=== PATIENT | female | born 1955 | race Caucasian/White ===

== ENCOUNTER 2016-10-11 09:40 | Emergency (ER) | payer BC ==
[2016-10-11 10:02] VITALS: BP 126/64
--- NOTE | 2016-10-11 10:14 | UC ---
Skin Complaint HPI - HPI Summary HPI Summary: 2 days of rash on lower leg---does not hurt or itch - History of Current Complaint Chief Complaint: UCRash Time Seen by Provider: 10/11/16 10:07 Stated Complaint: RASH Hx Obtained From: Patient ?: No Onset/Duration: Sudden Onset, Lasting Days, Still Present Timing: Constant Onset Severity: Mild Current Severity: Mild Pain Intensity: 0 Pain Scale Used: 0-10 Numeric Location: Discrete - both lower legs Character: Redness - Petecial Rash Aggravating: Nothing Alleviating: Nothing Associated Signs & Symptoms: Positive: Negative Related History: Other: - On Coumidin and Minocin Had INR checked on the -- It was 4 she held dose for one day and change daily dose to 5 mg qd. Has not take minocin for 4 days due to stomach upset - Allergy/Home Medications Allergies/Adverse Reactions: Allergies Allergy/AdvReac Type Severity Reaction Status Date / Time Sulfa Antibiotics Allergy Hives Verified 10/11/16 10:15 Review of Systems Constitutional: Negative Skin: Rash Eyes: Negative ENT: Negative Respiratory: Negative Cardiovascular: Negative Gastrointestinal: Negative Genitourinary: Negative Motor: Negative Neurovascular: Negative Musculoskeletal: Negative Neurological: Negative Psychological: Negative All Other Systems Reviewed And Are Negative: Yes PMH/Surg Hx/FS Hx/Imm Hx Previously Healthy: No Endocrine History: Dyslipidemia Cardiovascular History: Hypertension, Other Other Cardiovascular History: pulmonary emboli x2 - Surgical History Surgical History: Yes Surgery Procedure, Year, and Place: Hysterectomy; Nasal Surgery for crusted Turbinate Reduction 1989; Cardiac Ablation for patient report A[facility]-Park[facility]- [facility] in 1996 - Family History Known Family History: Positive: None - Social History Occupation: Employed Full-time Lives: With Family Alcohol Use: Rare Substance Use Type: None Smoking Status (MU): Light Every Day Tobacco Smoker Type: Cigarettes Amount Used/How Often: 1/2 PK DAY Have You Smoked in the Last Year: Yes Cessation Counseling: Patient Advised to Stop Physical Exam Triage Information Reviewed: Yes Appearance: Well-Appearing, No Pain Distress, Well-Nourished Vital Signs: Initial Vital Signs Temp 98.6 F 10/11/16 10:01 Pulse 59 10/11/16 10:01 Resp 16 10/11/16 10:01 BP 126/64 10/11/16 10:01 Pulse Ox 99 10/11/16 10:01 Vital Signs Reviewed: Yes Eye Exam: Normal Eyes: Positive: Conjunctiva Clear ENT Exam: Normal ENT: Positive: Normal ENT inspection, Hearing grossly normal, Pharynx normal, TMs normal. Negative: Nasal congestion, Nasal drainage, Trismus, Muffled/ hoarse voice Dental Exam: Normal Neck exam: Normal Neck: Positive: Supple, Nontender, No Lymphadenopathy Respiratory Exam: Normal Respiratory: Positive: Chest non-tender, Lungs clear, Normal breath sounds, No respiratory distress, No accessory muscle use Cardiovascular Exam: Normal Cardiovascular: Positive: RRR, No Murmur, Pulses Normal, Brisk Capillary Refill Musculoskeletal Exam: Normal Musculoskeletal: Positive: Strength Intact, ROM Intact, No Edema Neurological Exam: Normal Neurological: Positive: Alert, Muscle Tone Normal Psychological Exam: Normal Skin Exam: Other Skin: Positive: rashes - peticheal rash both lower legs Re-Evaluation - Re-Evaluation First Eval Change: Unchanged - Dr. Boateng in room to see patient and develop a treatment plan--- Course/Dx - Course Course Of Treatment: Hold morning Coumidin until INR is reported, Follow this week with Dr. Crandall, Follow Blood Pressure with Dr. Payne, Smoking Cesation information provided - Differential Diagnoses - Skin Complaint Differential Diagnoses: Cellulitis, Contact Dermatitis, Impetigo, Local Allergic Reaction, Systemic Illness - Diagnoses Provider Diagnoses: Petchial Rah Both Lower extremities, Hypertension poor control, nicotine dependant Discharge - Discharge Plan Condition: Stable Disposition: HOME Patient Education Materials: Warfarin (By mouth), Elevated INR (ED) Referrals: Hamilton Crandall MD [Primary Care Provider] - 1 Week Additional Instructions: We will check you labs now---follow with Dr. Crandall in one week, do not take tomorrows Coumadin until you speak with us or Dr. Crandall Regarding your INR
[2016-10-11 16:36] LABS: Hematocrit 44 % (35-47); Hemoglobin 14.9 g/dl (12.0-16.0); Mean Corpuscular HGB Conc 34 g/dl (31-36); Mean Corpuscular Hemoglobin 31 pg (27-31); Mean Corpuscular Volume 92 fL (80-97); Mean Platelet Volume 11 um3 (7.4-10.4); Red Blood Count 4.82 10^6/ul (4.0-5.4); Red Cell Distribution Width 14 % (10.5-15)
--- NOTE | 2016-10-12 18:54 | UC ---
Progress - Progress Note Progress Note: Hold am dose of Coumadin (INR 3.61) and call primary care provider for further dosing instructions Re-Evaluation - Re-Evaluation First Eval Change: Unchanged - Dr. Boateng in room to see patient and develop a treatment plan---
== END 2016-10-11 11:54 | disposition home or self-care (01) ==
LOC: UCEAST 09:40
DX: R23.3 Spontaneous ecchymoses (principal); I27.82 Chronic pulmonary embolism; Z79.01 Long term (current) use of anticoagulants; I10 Essential (primary) hypertension; Z72.0 Tobacco use
CPT/HCPCS: 36415; 85025; 85610; 99212; G0463

== ENCOUNTER 2018-01-17 13:34 | Emergency (ER) | payer BC ==
[2018-01-17 13:42] VITALS: BP 143/61
--- NOTE | 2018-01-17 14:52 | UC ---
Lower Extremity/Ankle HPI - HPI Summary HPI Summary: The patient is a 62 y/o F presenting to [facility] with a chief complaint of pain in the left fourth toe starting today. She was asleep and woke up to throbbing pain , rated 7/10 in severity, and swelling in the toe. There are no aggravating or alleviating factors. There is no bruising evident, and she is able to move the toe and foot. She has hx of HTN. - History of Current Complaint Chief Complaint: UCLowerExtremity Stated Complaint: SWOLLEN TOE Hx Obtained From: Patient Onset/Duration: Sudden Onset, Lasting Hours - started this morning, Still Present Severity Initially: Moderate Severity Currently: Moderate Pain Intensity: 7 Pain Scale Used: 0-10 Numeric Aggravating Factor(s): Nothing Alleviating Factor(s): Nothing Able to Bear Weight: Yes Feet (Multiple View): 1 - pain and swelling in left fourth toe - Allergies/Home Medications Allergies/Adverse Reactions: Allergies Allergy/AdvReac Type Severity Reaction Status Date / Time Sulfa (Sulfonamide Allergy Hives Verified 01/17/18 13:42 Antibiotics) PMH/Surg Hx/FS Hx/Imm Hx Endocrine History: Other Other Endocrine History: NEGATIVE: diabetes, HLD Cardiovascular History: Hypertension - Surgical History Surgical History: None Surgery Procedure, Year, and Place: Hysterectomy; Nasal Surgery for crusted Turbinate Reduction 1989; Cardiac Ablation for patient report A[facility]a-Parkinson- [facility] in 1996 - Family History Known Family History: Negative: Cardiac Disease, Hypertension, Diabetes - Social History Alcohol Use: None Substance Use Type: None Smoking Status (MU): Light Every Day Tobacco Smoker Type: Cigarettes Amount Used/How Often: 1/2 PK DAY Have You Smoked in the Last Year: Yes Review of Systems Skin: Other - NEGATIVE: bruising Musculoskeletal: Other: - pain and swelling in left fourth toe All Other Systems Reviewed And Are Negative: Yes Physical Exam - Summary Physical Exam Summary: VITAL SIGNS: Reviewed. GENERAL: Patient is a well-developed and nourished female who is lying comfortable in the stretcher. Patient is not in any acute respiratory distress. HEAD AND FACE: Normocephalic EYES: PERRLA, EOMI x 2. EARS: Hearing grossly intact. MOUTH: Oropharynx within normal limits. NECK: Supple, trachea is midline, no adenopathy, no JVD, no carotid bruit. CHEST: Symmetric, no tenderness at palpation LUNGS: Clear to auscultation bilaterally. No wheezing or crackles. CVS: Regular rate and rhythm, S1 and S2 present, no murmurs or gallops appreciated. ABDOMEN: Soft, non-tender. Bowel sounds are normal. No abdominal abnormal pulsations. EXTREMITIES: Full ROM in all major joints, no edema, no cyanosis or clubbing. Tender to palpation in the left fourth toe, No deformities, no hematomas, no ecchymosis NEURO: Alert and oriented x 3. No acute neurological deficits. Speech is normal and follows commands. SKIN: Dry and warm Triage Information Reviewed: Yes Vital Signs: Initial Vital Signs Temp 97.1 F 01/17/18 13:38 Pulse 68 01/17/18 13:38 Resp 19 01/17/18 13:38 BP 143/61 01/17/18 13:38 Pulse Ox 100 01/17/18 13:38 Vital Signs Reviewed: Yes Diagnostics - Radiology Left Foot XR Xray Interpretation: No Acute Changes - No fracture of the left foot is noted. [facility] physician has reviewed this report. Radiology Interpretation Completed By: Radiologist Lower Extremity Course/Dx - Course Course Of Treatment: This patient is a 62-year-old female who presents to the urgent care with a chief complaint of left fourth toe swelling, pain, and redness. Patient has been having the symptoms for the last couple days. She denies any history of trauma or heavy lifting. X-ray of the left foot shows no fracture or dislocation. I believe that the symptoms for this patient are secondary to cellulitis. Therefore the patient was placed on Keflex. Patient was discharged home with follow-up with PCP. Patient was instructed to return to the urgent care if she develops increasing pain, swelling or any other symptoms. The patient understands and agrees. All her concerns were addressed and there are no further questions. - Differential Dx/Diagnosis Provider Diagnoses: Cellulitis Discharge - Sign-Out/Discharge Documenting (check all that apply): Patient Departure - Patient will be discharged home. All imaging exams completed and their final reports reviewed: Yes - Discharge Plan Condition: Stable Disposition: HOME Prescriptions: Cephalexin CAP* [Keflex CAP*] 500 mg PO QID #40 cap Patient Education Materials: Cellulitis (ED) Referrals: Hamilton Crandall MD [Primary Care Provider] - Additional Instructions: Take medications as instructed and adhere to plan Take Acetaminophen or ibuprofen for pain or fever Increase your fluid intake Return to the or go to the emergency department if symptoms worsen Follow-up with primary care physician in next 2-3 days - Billing Disposition and Condition Condition: STABLE Disposition: Home - Attestation Statements Document Initiated by Kurtisibosman: Yes Documenting Scribe: Jessica Barroso Provider For Whom Perla is Documenting (Include Credential): Dr. Keny Willingahm MD Scribe Attestation: Jessica Guerrero scribed for Dr. Keny Willingham MD on 01/17/18 at 1739. Scribe Documentation Reviewed: Yes Provider Attestation: The documentation as recorded by the Jessica trinidad accurately reflects the service I personally performed and the decisions made by me, Dr. Keny Willingham MD
--- NOTE | 2018-01-17 15:15 | RAD ---
Indication: Left foot pain. 3 views of left foot demonstrates no fracture. No other bone or joint abnormality is noted. IMPRESSION: No fracture of the left foot is noted.
== END 2018-01-17 15:15 | disposition home or self-care (01) ==
LOC: UCEAST 13:34
DX: L03.032 Cellulitis of left toe (principal)
CPT/HCPCS: 99212; G0463

== ENCOUNTER 2019-01-21 07:03 | Emergency (ER) | payer BC ==
[2019-01-21 07:16] VITALS: BP 127/57
--- NOTE | 2019-01-21 07:24 | UC ---
Respiratory Complaint HPI - HPI Summary HPI Summary: The patient is a 63-year-old female with the onset of runny nose cough and congestion that started 3-4 days ago. For the past 2-3 weeks she has been plagued by her seasonal allergies. This consists of itchy eyes runny nose and nasal congestion. Her symptoms markedly worsened later this week. For the past day she has had chest tightness wheezing and productive cough. She denies any shortness of breath. She denies any fever or chills. She denies any nausea vomiting or diarrhea. - History of Current Complaint Chief Complaint: UCRespiratory Stated Complaint: CHEST CONGESTION Time Seen by Provider: 01/21/19 07:18 Hx Obtained From: Patient Onset/Duration: Gradual Onset Timing: Constant Severity Initially: Mild Severity Currently: Mild Pain Intensity: 3 Pain Scale Used: 0-10 Numeric Character: Cough: Productive Aggravating Factors: Exertion, Deep Breaths Alleviating Factors: Nothing Associated Signs And Symptoms: Positive: Wheezing, Nasal Congestion, Sinus Discomfort Related History: Seasonal Allergies, Similar Episode/Dx as: - BRONCHITIS - Allergies/Home Medications Allergies/Adverse Reactions: Allergies Allergy/AdvReac Type Severity Reaction Status Date / Time Sulfa (Sulfonamide Allergy Hives Verified 01/17/18 13:42 Antibiotics) PMH/Surg Hx/FS Hx/Imm Hx Previously Healthy: Yes Cardiovascular History: Hypertension, Deep Vein Thrombosis, Other Other Cardiovascular History: Dysrrhymia- has implantable event monitor Respiratory History: Bronchitis, Pulmonary Embolism - Surgical History Surgical History: Yes Surgery Procedure, Year, and Place: Hysterectomy; Nasal Surgery for crusted Turbinate Reduction 1989; Cardiac Ablation for patient report A[facility]-Parkinson- [facility] in 1996 - Family History Known Family History: Positive: None Negative: Cardiac Disease, Hypertension, Diabetes - Social History Alcohol Use: None Substance Use Type: None Smoking Status (MU): Light Every Day Tobacco Smoker Type: Cigarettes Amount Used/How Often: 1/2 PK DAY Have You Smoked in the Last Year: Yes Review of Systems All Other Systems Reviewed And Are Negative: Yes Constitutional: Positive: Negative Skin: Positive: Negative Eyes: Positive: Negative ENT: Positive: Nasal Discharge, Sinus Congestion, Sinus Pain/Tenderness Respiratory: Positive: Cough Cardiovascular: Positive: Chest Pain - with coughing spellls only Gastrointestinal: Positive: Negative Genitourinary: Positive: Negative Motor: Positive: Negative Neurovascular: Positive: Negative Musculoskeletal: Positive: Negative Neurological: Positive: Negative Psychological: Positive: Negative Physical Exam Triage Information Reviewed: Yes Appearance: Well-Appearing, No Pain Distress, Well-Nourished Vital Signs: Initial Vital Signs Temp 98.6 F 01/21/19 07:11 Pulse 69 01/21/19 07:11 Resp 18 01/21/19 07:11 BP 127/57 01/21/19 07:11 Pulse Ox 96 01/21/19 07:11 Vital Signs Reviewed: Yes Eyes: Positive: Conjunctiva Clear ENT: Positive: Hearing grossly normal, Uvula midline. Negative: Nasal congestion, Nasal drainage, Trismus, Muffled voice Neck: Positive: Supple, Nontender, No Lymphadenopathy Respiratory: Positive: No respiratory distress, No accessory muscle use, Wheezing Cardiovascular: Positive: RRR Musculoskeletal: Positive: ROM Intact, No Edema Neurological: Positive: Alert Psychological Exam: Normal Skin Exam: Normal Diagnostics - Radiology No standard instances Radiology Interpretation Completed By: Radiologist Summary of Radiographic Findings: NAD, no infiltrate Respiratory Course/Dx - Differential Dx/Diagnosis Provider Diagnosis: Acute bronchitis with bronchospasm Discharge ED - Sign-Out/Discharge Documenting (check all that apply): Patient Departure All imaging exams completed and their final reports reviewed: Yes - Discharge Plan Condition: Stable Disposition: HOME Patient Education Materials: Acute Bronchitis (ED), How to Use a Metered-Dose Inhaler and a Spacer (ED) Referrals: Hamilton Crandall MD [Primary Care Provider] - 5 Days Additional Instructions: recheck for new or worsening symptoms - Billing Disposition and Condition Condition: STABLE Disposition: Home
[2019-01-21] MEDS ORDERED: Albuterol HFA INHALER* 8 gm MDI INH ONE (07:27)
[2019-01-21] MEDS ORDERED: predniSONE TAB* 20 MG PO ONE (07:28)
== END 2019-01-21 07:59 | disposition home or self-care (01) ==
LOC: UCEAST 07:03
DX: J20.9 Acute bronchitis, unspecified (principal); I10 Essential (primary) hypertension; F17.210 Nicotine dependence, cigarettes, uncomplicated; Z86.718 Personal history of other venous thrombosis and embolism; Z88.2 Allergy status to sulfonamides
CPT/HCPCS: 71046; 99213; A9270-GY; G0463; J7512